=== PATIENT | male | born 1980 | race American Indian/Alaskan Native ===

== ENCOUNTER 2020-10-06 15:16 | Emergency (ER) | payer MEDICAID ==
[~2020-10-06] VITALS: Ht 188 cm; Wt 81.6 kg
[2020-10-06 15:16] VITALS: BP_SYST 102
--- NOTE | 2020-10-06 15:16 | NUR ---
Patient to [facility] for evaluation. Side rails up.
--- NOTE | 2020-10-06 15:17 | NUR ---
Patient brought in by law enforcement for clearance to book. Patient speech is slurred and responses to questions are inappropriate. He presents with laceration to right palm with sutures. Wound is macerated.
--- NOTE | 2020-10-06 15:28 | NUR ---
ER Dr. Vera at bedside examining patient.
--- NOTE | 2020-10-06 15:39 | NUR ---
Patient given written and verbal discharge instructions and verbalizes understanding. ER MD discussed with patient the results and treatment provided. Patient in stable condition. ID arm band removed. Patient educated on pain management and to follow up with PMD. Pain Scale 0/10. Opportunity for questions provided and answered. Medication side effect fact sheet provided.
[2020-10-06 15:40] VITALS: BP_SYST 102
== END 2020-10-06 15:40 ==
LOC: SED 15:16
DX: S61.411A Laceration without foreign body of right hand, initial encounter (principal); W26.8XXA Contact with other sharp object(s), not elsewhere classified, initial encounter; Y93.89 Activity, other specified; Y92.89 Other specified places as the place of occurrence of the external cause; Y99.8 Other external cause status
CPT/HCPCS: 99283